=== PATIENT | female | born 1980 | race Caucasian/White ===

== ENCOUNTER 2016-07-31 13:23 | Emergency (ER) | payer OTHER ==
[~2016-07-31] VITALS: Ht 167.6 cm; Wt 122.5 kg
[~2016-07-31 13:23] MED LIST: KEFLEX500 M1 PO; LOTRIMIN CR1 %/30 GM TOP; PROAIR HFA0.09 MG/Ac INH
--- NOTE | 2016-07-31 14:32 | ED GI/GU/ABDOMINAL COMPLAINT ---
History of Present Illness General Chief Complaint: Abdominal Pain/Flank Pain Stated Complaint: ABD PAIN,VOMITING Source: patient Exam Limitations: no limitations Allergies Coded Allergies: NO KNOWN ALLERGIES (11/16/13) Triage Note: TRIAGE: 36 Y/O FEMALE PRESENTS C/O VOMITING SINCE LAST WEEK AND ABDOMINAL PAIN SINCE LAST TUESDAY, WAXING AND WANING IN NATURE. REPORTS "I CONSTANTLY GOT TO THE BATHROOM SINCE I HAD MY APPENDIX REMOVED, AND THIS IS NO DIFFERENT./" Triage Nurses Notes Reviewed? yes ? N Is pt currently ? No HPI: This patient is a 36-year-old female who presented to the emergency department today for evaluation of nausea, vomiting, and abdominal pain. Patient reported that last weekend she had a two-hour episode of pain in her right upper abdomen with radiation to her chest. She reported that the pain that up to an 8 out of 10 with no provoking or palliative factors. She reports that the pain went away on its own. The pain did radiate to her back. The patient reported that she had the same pain yesterday with associated nausea and vomiting. She reported that she vomited approximately 2 times with no blood in the vomitus. The pain again was located in her right upper abdomen and radiated to her chest on the right side into her back. She denied any palpitations or difficulty breathing. The patient reported that the pain came back today and has started to subside. She still feels the pain at a 4 out of 10 with associated chest and back pain. She reported the pain originally was a 9 out of 10 at 11:00 this morning when it started. The pain has been constant since onset. No palliative factors. Nothing provokes her symptoms. She reported that she has vomited approximately 3 times today with associated nausea. She denied any fevers, chills, constipation, jaw pain, arm pain, or any other associated symptoms. The patient did report that she has gastrointestinal issues at baseline and will typically have to go to the bathroom with loose stools not long after eating. She reported that all she had to eat today prior to the pain starting with a blueberry muffin. (ANA LUISA ALFORD,SONJA) Vital Signs & Intake/Output Vital Signs & Intake/Output Vital Signs Date Time Temp Pulse Resp B/P Pulse O2 O2 Flow FiO2 Ox Delivery Rate 07/31 1756 97.7 69 18 120/55 99 Room Air 07/31 1554 70 14 112/69 98 Room Air 07/31 1448 98.0 68 20 112/66 96 Room Air 07/31 1402 96.8 61 18 105/68 97 Room Air Room Air ED Intake and Output 08/01 0000 07/31 1200 Intake Total Output Total Balance Patient 270 lb Weight Reconcile Medications Hyoscyamine Sulfate (Levsin-Sl) 0.125 MG TAB.SUBL 1-2 TAB SL Q4P PRN VOMITING Naproxen (Naprosyn) 500 MG TABLET 1 TAB PO BID PRN PAIN Ondansetron (Zofran Odt) 4 MG TAB.RAPDIS 1 TAB SL TID PRN NAUSEA (CHICO GRIMES,JOSÉ MANUEL) Past History Travel History Traveled to [place] past 21 day No Medical History Any Pertinent Medical History? see below for history Neurological: NONE EENT: NONE Cardiovascular: NONE Respiratory: NONE Gastrointestinal: NONE Hepatic: NONE Renal: NONE Musculoskeletal: NONE Psychiatric: NONE Endocrine: GESTATIONAL DM BUILD MANAGER/Reproductive: Surgical History Surgical History: N Psychosocial History Who do you live with Patient/Self What is your primary language Iraqi Tobacco Use: Never used ETOH Use: occasional use Illicit Drug Use: denies illicit drug use Family History Hx Contributory? No (SONJA OROSCO PA-C) Review of Systems Review of Systems Constitutional: Reports: no symptoms. EENTM: Reports: no symptoms. Respiratory: Reports: no symptoms. Cardiovascular: Reports: see HPI. GI: Reports: see HPI. Genitourinary: Reports: no symptoms. Musculoskeletal: Reports: see HPI. Skin: Reports: no symptoms. Neurological/Psychological: Reports: no symptoms. All Other Systems: Reviewed and Negative (SONJA ORSOCO PA-C) Physical Exam Physical Exam Gastrointestinal: normal bowel sounds, soft, non-tender, no organomegaly, no rebound or guarding. Nondistended. Negative Rivers sign.no McBurney's point tenderness Negative Rovsing sign. No peritoneal signs. Comments: Well-developed well-nourished person in no acute distress HEENT: Normal EENT exam, head normocephalic, moist mucous membranes Neck: Supple, no lymphadenopathy Back: No CVA tenderness. Normal gait Cardiovascular: Regular rate and rhythm with no murmurs, rubs, or gallops Respiratory: Chest nontender. No respiratory distress. Breath sounds clear to auscultation bilaterally Extremity: Normal and equal pulses Neuro: Alert oriented x3, cranial nerves II through XII grossly intact. Skin: No appreciable rash on exposed skin, skin is warm and dry. Psych: Mood and affect is normal Core Measures ACS in differential dx? No Severe Sepsis Present: No Septic Shock Present: No (ANA LUISA ALFORD,SONJA) Progress Differential Diagnosis: AAA, AMI, appendicitis, biliary colic, bowel obstruction , colon cancer, cholecystitis, diverticulitis, ectopic , endometritis, gastritis, hepatitis, ischemic bowel, inflamm bowel dis, intrauterine , kidney stone, pancreatitis, PID/cervicitis, PUD/GERD, perforated viscous, threatened AB, UTI/pyelo Diagnostic Imaging: Viewed by Me: Radiology Read, Ultrasound. Discussed w/RAD: Radiology Read, Ultrasound. Radiology Impression: PATIENT: JANET WILKINSON PRESENT AGE: 36 PATIENT ACCOUNT NO: [id number] : 78 LOCATION: [facility] ORDERING PHYSICIAN: SONJA OROSCO PA-C SERVICE DATE: 07/31/16 EXAM TYPE: US - US-LIMITED ABDOMEN EXAMINATION: US ABDOMEN LIMITED CLINICAL INFORMATION: Right upper quadrant abdominal pain.. COMPARISON: CT of abdomen pelvis from 2012. TECHNIQUE: Real-time imaging of the right upper quadrant abdominal viscera. FINDINGS: PANCREAS: The pancreas is partially obscured by bowel gas. The visualized portions of the pancreatic head, neck and body are normal. LIVER: Normal. The liver demonstrates normal size, contour and echogenicity. No focal lesion or intrahepatic biliary duct dilatation. GALLBLADDER: Gallbladder is filled with multiple shadowing calculi and, therefore, its wall is suboptimally evaluated. There is no gross evidence of gallbladder wall edema or pericholecystic fluid. No sonographic Rivers's sign. No ultrasound evidence of acute cholecystitis. COMMON BILE DUCT: Normal in caliber measuring 3-4 mm in diameter. RIGHT KIDNEY: Normal. No hydronephrosis. No renal calculi or focal parenchymal lesions. The kidney measures 11.8 cm in maximum dimension. FREE FLUID: None. IMPRESSION: Gallbladder is filled with shadowing stones. However, there is no gallbladder wall edema, pericholecystic fluid or sonographic Rivers' s sign. DICTATED BY: LAINE ACEVES MD DATE/TIME DICTATED:07/31/161638 WIRE ROPE FABRICATION SUPERVISOR:GUILLE DATE/TIME TRANSCRIBED:07/31/169 CONFIDENTIAL, DO NOT COPY WITHOUT APPROPRIATE AUTHORIZATION. <Electronically signed in Other Vendor System> SIGNED BY: LAINE ACEVES MD 07/31/16 1646 CXR Impression: PATIENT: JANET WILKINSON PRESENT AGE: 36 PATIENT ACCOUNT NO: [id number] : 78 LOCATION: [facility] ORDERING PHYSICIAN: SONJA OROSCO PA-C SERVICE DATE: 07/31/16-145 EXAM TYPE: RAD - XRY-CHEST XRAY, PA AND LATERAL EXAMINATION: XR CHEST CLINICAL INFORMATION: Chest pain. Evaluation for cardiomegaly. COMPARISON: None TECHNIQUE: 2 views of the chest were obtained. FINDINGS: Mildly hypoventilatory exam. The cardiac size is upper normal limits. The mediastinal silhouette and pulmonary vascularity are unremarkable. The lungs are clear. No pleural effusions or pneumothorax. The visualized bony thorax is intact. IMPRESSION: Borderline cardiac size which can be partly due to low inspiratory effort on the PA view. No acute pulmonary finding. DICTATED BY: SURAJ DUPONT MD DATE/TIME DICTATED:07/31/161526 WIRE ROPE FABRICATION SUPERVISOR:GUILLE DATE/TIME TRANSCRIBED:07/31/161526 CONFIDENTIAL, DO NOT COPY WITHOUT APPROPRIATE AUTHORIZATION. <Electronically signed in Other Vendor System> SIGNED BY: SURAJ DUPONT MD 07/31/16 1532 Initial ED EKG: normal axis, normal intervals, no ST T wave changes, 80 bpm (ANA LUISA ALFORD,SONJA) Plan of Care: Orders Procedure Date/time Status CULTURE,URINE 07/31 1425 Active URINE 07/31 1425 Complete URINALYSIS 07/31 1425 Complete TROPONIN LEVEL 07/31 1425 Complete LIPASE 07/31 1425 Complete DIRECT BILIRUBIN 07/31 1425 Complete COMPREHENSIVE METABOLIC PANEL 07/31 1425 Complete CBC WITHOUT DIFFERENTIAL 07/31 1425 Complete AMYLASE 07/31 1425 Complete EKG 07/31 1425 Active Current Medications Sig/Jamar Start time Last Medication Dose Stop Time Status Admin Ondansetron HCl 4 MG ONCE ONE 07/31 1430 CAN (Zofran) 07/31 1431 Laboratory Tests 07/31/16 1440: Urinalysis LIGHT H, Urine Color KYE, Urine Clarity CLEAR, Urine pH 6.0, Ur Specific [place] >= 1.030, Urine Protein NEG, Urine Ketones NEG, Urine Nitrite NEG, Urine Bilirubin NEG@ICTO, Urine Urobilinogen 2.0 H, Ur Leukocyte Esterase NEG, Ur Microscopic SEDIMENT EXAMINED, Urine RBC RARE, Urine WBC RARE, Ur Epithelial Cells MANY H, Urine Bacteria MOD H, Urine Mucus MOD H, Urine Hemoglobin TRACE-LYSED, Urine Glucose NEG, Urine Test NEGATIVE 07/31/16 1437: Anion Gap 12, Estimated GFR > 60, BUN/Creatinine Ratio 21.4, Glucose 153 H, Calcium 9.9, Total Bilirubin 1.5 H, Direct Bilirubin 1.0 H, AST 337 H, ALT 136 H, Alkaline Phosphatase 174 H, Troponin I < 0.01, Total Protein 8.1, Albumin 4.9, Globulin 3.2, Albumin/Globulin Ratio 1.5, Amylase < 30 L, Lipase 80, CBC w Diff NO MAN DIFF REQ, RBC 5.13, MCV 84.3, MCH 28.0, RDW 13.4, MPV 8.2, Gran % 85.3 H, Lymphocytes % 10.5 L, Monocytes % 3.4, Eosinophils % 0.4, Basophils % 0.4, Absolute Granulocytes 10.0 H, Absolute Lymphocytes 1.2, Absolute Monocytes 0.4, Absolute Eosinophils 0, Absolute Basophils 0, PUBS MCHC 33.2 Microbiology 07/31 1440 URINE ROUT: Urine Culture - RES Departure Departure Disposition: HOME OR SELF CARE Condition: Stable Clinical Impression Primary Impression: Biliary colic Referrals: XOCHILT ROTH (PCP/Family) MAN GRIMES,MINGO Paulino Additional Instructions: Please take medication for pain as prescribed. Take Zofran as prescribed for nausea. Be sure to stay hydrated. Maintain a low-fat diet to avoid exacerbating any of your symptoms. Please called the general surgeon whose information has been provided to you in this packet to schedule a follow-up appointment for further evaluation. Return to the emergency department for any worsening symptoms or concerns. Departure Forms: Customer Survey General Discharge Information Prescriptions: Current Visit Scripts Hyoscyamine Sulfate (Levsin-Sl) 1-2 TAB SL Q4P PRN VOMITING #14 TAB Ondansetron (Zofran Odt) 1 TAB SL TID PRN NAUSEA #10 TAB Naproxen (Naprosyn) 1 TAB PO BID PRN PAIN #20 TAB (SONJA OROSCO PA-C) PA/HORSE SHOER Co-Sign Statement Statement: ED Attending supervision documentation- [] I saw and evaluated the patient. I have also reviewed all the pertinent lab results and diagnostic results. I agree with the findings and the plan of care as documented in the PA's/HORSE SHOER's documentation. x I have reviewed the ED Record and agree with the PA's/HORSE SHOER's documentation. [] Additions or exceptions (if any) to the PAs/HORSE SHOER's note and plan are summarized below: [] (CHICO GRIMES,JOSÉ MANUEL)
[2016-07-31 14:48] LABS: ABSOLUTE BASOPHIL COUNT 0 /CUMM (0.0-0.2); ABSOLUTE EOSINOPHIL COUNT 0 /CUMM (0.0-0.7); ABSOLUTE LYMPH COUNT 1.2 /CUMM (1.2-3.4); ABSOLUTE MONOCYTE COUNT 0.4 /CUMM (0.10-0.60); BASOPHIL % 0.4 % (0.0-2.0); EOSINOPHIL % 0.4 % (0-5); GRANULOCYTE % 85.3 % (42.2-75.2); HEMATOCRIT 43.2 % (37-47); MEAN CORPUSCULAR HGB CONC 33.2 G/DL (33.0-37.0); MEAN CORPUSCULAR VOLUME 84.3 FL (81.0-99.0); MEAN PLATELET VOLUME 8.2 FL (7.4-10.4); PLATELET COUNT 228 /CUMM (130-400); RBC DISTRIBUTION WIDTH 13.4 % (11.5-14.5); RED BLOOD CELL CT 5.13 /CUMM (4.20-5.40); WHITE BLOOD CELL COUNT 11.7 /CUMM (4.8-10.8)
--- NOTE | 2016-07-31 15:32 | RADIOLOGY REPORT ---
EXAMINATION: XR CHEST CLINICAL INFORMATION: Chest pain. Evaluation for cardiomegaly. COMPARISON: None TECHNIQUE: 2 views of the chest were obtained. FINDINGS: Mildly hypoventilatory exam. The cardiac size is upper normal limits. The mediastinal silhouette and pulmonary vascularity are unremarkable. The lungs are clear. No pleural effusions or pneumothorax. The visualized bony thorax is intact. IMPRESSION: Borderline cardiac size which can be partly due to low inspiratory effort on the PA view. No acute pulmonary finding.
--- NOTE | 2016-07-31 16:46 | ULTRASOUND REPORT ---
EXAMINATION: US ABDOMEN LIMITED CLINICAL INFORMATION: Right upper quadrant abdominal pain.. COMPARISON: CT of abdomen pelvis from 06/20/2012. TECHNIQUE: Real-time imaging of the right upper quadrant abdominal viscera. FINDINGS: PANCREAS: The pancreas is partially obscured by bowel gas. The visualized portions of the pancreatic head, neck and body are normal. LIVER: Normal. The liver demonstrates normal size, contour and echogenicity. No focal lesion or intrahepatic biliary duct dilatation. GALLBLADDER: Gallbladder is filled with multiple shadowing calculi and, therefore, its wall is suboptimally evaluated. There is no gross evidence of gallbladder wall edema or pericholecystic fluid. No sonographic Rivers's sign. No ultrasound evidence of acute cholecystitis. COMMON BILE DUCT: Normal in caliber measuring 3-4 mm in diameter. RIGHT KIDNEY: Normal. No hydronephrosis. No renal calculi or focal parenchymal lesions. The kidney measures 11.8 cm in maximum dimension. FREE FLUID: None. IMPRESSION: Gallbladder is filled with shadowing stones. However, there is no gallbladder wall edema, pericholecystic fluid or sonographic Rivers's sign.
[2016-07-31] MEDS ORDERED: NAPROSYN500 M1 PO (17:13)
[2016-07-31] MEDS ORDERED: ZOFRAN ODT4 M1 SL (17:13)
[2016-07-31] MEDS ORDERED: LEVSIN-SL0.125 MG SL (17:13)
[2016-07-31 17:56] VITALS: BP 120/55
[2016-10-01] MEDS ORDERED: IMITREX50 M1 PO (14:48)
== END 2016-07-31 18:45 ==
LOC: ERH 13:23
PROVIDERS: Physician Assistant
DX: K80.50 Calculus of bile duct without cholangitis or cholecystitis without obstruction (principal); R07.9 Chest pain, unspecified
CPT/HCPCS: 81001; 81025; 87086; 93005; 93010; 96375; J2405

== ENCOUNTER → 2016-10-06 | Day surgery (SDC) | payer OTHER ==
--- NOTE | 2016-10-05 09:41 | History & Physical Pre-Op ---
General Information and HPI MD Statement: I have seen and personally examined JANET WILKINSON and documented this H&P. The patient is a 36 year old F who presented with a patient stated chief complaint of []. History of Present Illness: Patient presents for evaluation of gallstones. She was seen in [facility] emergency room last week for abdominal pain. While in the ER her pain resolved and she was sent home. She states the progression of her symptoms were that she would get intermittent right upper quadrant abdominal pain following meals. Eventually the pain was unrelenting and she sought medical attention. The pain was in the epigastric region and right upper quadrant with radiation to her chest. It was associated with nausea and vomiting. Since discharge from the emergency room she has been eating normally and is pain-free. Ultrasound showed gallstones without inflammation. Normal CBD. LFT mildly elevated. Allergies/Medications Allergies: Coded Allergies: NO KNOWN ALLERGIES (11/16/13) Home Med list Sumatriptan Succinate (Imitrex) 50 MG TABLET 1 TAB PO AD PRN MIGRAINE ( Reported) Past History Medical History Neurological: NONE EENT: NONE Cardiovascular: hyperlipidemia Respiratory: NONE Gastrointestinal: NONE Hepatic: NONE Renal: NONE Musculoskeletal: NONE Psychiatric: NONE Endocrine: GESTATIONAL DM SUPERVISOR CALIBRATION/Reproductive: Surgical History Pertinent Surgical History: appendectomy, , N Review of Systems Review of Systems: Patient reports abdominal pain and vomiting but reports no vomiting blood, normal appetite, no diarrhea, no constipation, no rectal bleeding, and no history of GERD. Neurologic:: headaches. She reports no fatigue, no fever, no night sweats, no significant weight gain, no significant weight loss, and no exercise intolerance. She reports no abnormal moles, no jaundice, no hives, no eczema, and no rashes. She reports no dry eyes, no irritation, no vision change, and no discharge. She reports no cough, no wheezing, no shortness of breath, and no coughing up blood. She reports no chest pain, no arm pain on exertion, no shortness of breath when walking, no shortness of breath when lying down, no palpitations, and no leg swelling. She reports no incontinence, no difficulty urinating, no hematuria, and no increased frequency. She reports no muscle aches , no muscle weakness, no arthralgias/joint pain, and no back pain. She reports no gynecologic complaints. Exam & Diagnostic Data Physical Exam: Constitutional: General Appearance: healthy-appearing and morbidly obese. Level of Distress: no acute distress. Ambulation: ambulating normally. Head: Head: normocephalic and atraumatic. Neck: Neck: supple, trachea midline, no masses, and full range of motion. Thyroid: no enlargement or nodules and non-tender. Lymph Nodes: no cervical LAD, supraclavicular LAD, axillary LAD, or inguinal LAD. Cardiovascular: Heart Auscultation: normal S1 and S2; no murmurs, rubs, or gallops; and regular rate and rhythm. Lungs: Respiratory effort: no dyspnea. Percussion: no dullness, flatness, or hyperresonance. Auscultation: no wheezing, rales/crackles, or rhonchi and breath sounds normal, good air movement, and clear to auscultation. Back: Thoracolumbar Appearance: normal curvature. Abdomen: Inspection and Palpation: no tenderness, guarding, masses, rebound tenderness, or CVA tenderness and soft and non-distended. Bowel Sounds: normal. Liver: non-tender and no hepatomegaly. Spleen: non-tender and no splenomegaly. Hernia: none palpable. Skin: Inspection and palpation: no rash, lesions, ulcer, induration, nodules, jaundice, or abnormal nevi and good turgor. Musculoskeletal:: Extremities: no cyanosis, edema, varicosities, or palpable cord. Motor Strength and Tone: normal tone and motor strength. Joints, Bones, and Muscles: no contractures, malalignment, tenderness, or bony abnormalities and normal movement of all extremities. Psychiatric: Insight: good judgement and insight. Mental Status: normal mood and affect and active and alert. Orientation: to time, place, and person. Memory: recent memory normal and remote memory normal. Assessment/Plan Assessment/Plan: Cholelithiasis with obstruction - Daniel passed a CBD stone. Recommend laparoscopic cholecystectomy to prevent recurrence. Discussion Notes Discussed outpatient laparoscopic cholecystectomy under general anesthesia. Discussed the side effects of cholecystectomy including diarrhea. Discussed the recovery period and complications including bleeding, infection, conversion to open and bile duct injury requiring reconstruction. As Ranked By This Provider Problem List: 1. Biliary colic
[~2016-10-06] VITALS: Ht 167.6 cm; Wt 117.9 kg
[~2016-10-06] MED LIST changes: +IMITREX50 M1 PO; +LEVSIN-SL0.125 MG SL; +NAPROSYN500 M1 PO; +ZOFRAN ODT4 M1 SL
--- NOTE | 2016-10-06 09:21 | Operative Report ---
Operative/Inv Procedure Report Surgery Date: 10/06/16 Name of Procedure: Laparoscopic cholecystectomy Pre-Operative Diagnosis: Biliary colic Post-Operative Diagnosis: Same Estimated Blood Loss: scant Surgeon/Franchise Manager: MAN GRIMES,MINGO Paulino/Ada MONSIVAIS Anesthesia: general endotracheal tube Drains: None Specimens: Gallbladder Operative Indication: See H&P Operative/Procedure Note Note: After informed consent patient is brought to the operating room and laid supine. General anesthesia was obtained and her abdomen was prepped and draped. The skin above the umbilicus infiltrated with local anesthesia and a curvilinear incision made sharply. We came down through the subcutaneous tissues bluntly and grasped the fascia with Harpswell's. A fasciotomy was created sharply and stay sutures placed. The peritoneum was entered sharply and a blunt Pedraza port was placed. Pneumoperitoneum was achieved. 3, 5 mm ports were placed in the epigastrium and right upper quadrant after local anesthesia was instilled and under direct vision the camera. She's placed in reverse Trendelenburg and rotated towards the left. The gallbladder is identified. It was grasped at the dome and retracted towards the head. Infundibulum was then grasped. Adhesions to the undersurface were taken down with blunt and cautery dissection. We dissected both sides the triangle Calot peritoneal tissue with cautery. The artery was medial and its normal anatomic position. It was cauterized medially to allow it to be mobilized away from the duct. [place] was cleared of areolar tissue with cautery. The arteries and duct were doubly ligated with clips. Gallbladder is removed from the fossa electrocautery. It was placed in Endo Catch bag and cinched up. Right upper quadrant was and suction irrigated normal saline. Hemostasis achieved with cautery. The ports were then removed and the gallbladder delivered and passed off the field. The fascia was closed with 0 Vicryl suture. Skin incisions closed with 4-0 Vicryl. Steri-Strips and sterile dressing applied. Sponge and needle counts are correct. CC: XOCHILT ROTH
== END ==
LOC: STS 01:32
DX: K80.10 Calculus of gallbladder with chronic cholecystitis without obstruction (principal)
CPT/HCPCS: 81025; 88304; J0131; J0690; J2250